=== PATIENT | male | born 1960 | race Two or more races ===

== ENCOUNTER 2021-02-22 22:56 | Inpatient (IN) | payer OTHER ==
[~2021-02-22] VITALS: Ht 154.9 cm; Wt 68.0 kg
--- NOTE | 2021-02-22 23:10 | NUR ---
PT [facility] FROM [facility] FOR G TUBE PLACEMENT PER PRIMARY DR. JAMES. A&OX 1. ON NASAL CANULLA 3L.
--- NOTE | 2021-02-22 23:20 | NUR ---
BLOOD COLLECTED AND SENT TO LAB.
[2021-02-22 23:36] LABS: HEMOGLOBIN 10.3 g/dL (13.5-17.5)
[2021-02-22 23:39] LABS: BASOPHILS # (AUTO) 0.1 K/uL (0.0-0.2); BASOPHILS % (AUTO) 0.4 % (0.0-2.0); EOSINOPHILS % (AUTO) 1.2 % (0.0-6.0); HEMATOCRIT 32 % (39-51); LYMPHOCYTES # (AUTO) 1.2 K/uL (0.8-4.8); LYMPHOCYTES % (AUTO) 7.2 % (20.0-44.0); MEAN CORPUSCULAR HGB CONC 32 g/dl (31.0-36.0); MEAN CORPUSCULAR VOLUME 86 fL (80-96); MONOCYTES # (AUTO) 0.8 K/uL (0.1-1.30); MONOCYTES % (AUTO) 4.5 % (2.0-12.0); NEUTROPHILS # (AUTO) 14.7 K/uL (1.8-8.9); NEUTROPHILS % (AUTO) 86.7 % (43.0-81.0); PLATELET COUNT (AUTO) 405 K/uL (150-450); RED BLOOD CELL COUNT(AUTO) 3.73 MIL/uL (4.5-6.0)
[2021-02-22 23:50] LABS: CALCIUM, SERUM 9.4 mg/dL (8.5-10.1); CREATININE 1.8 mg/dL (0.6-1.3); POTASSIUM 3.8 mmol/L (3.5-5.1)
[2021-02-23] MEDS ORDERED: IV NS 0.9% 1,000 ML BAG IV ONE
--- NOTE | 2021-02-23 | NUR ---
COVID SWAB AND URINE SAMPLE COLLECTED; SENT TO LAB
[2021-02-23 00:11] LABS: BILIRUBIN,URINE SMALL (NEGATIVE); COLOR,URINE YELLOW (YELLOW); LEUKOCYTE ESTERASE ,URINE Small (NEGATIVE); NITRITE, URINE Negative (NEGATIVE); PROTEIN,URINE >=300 mg/dl (NEGATIVE); UGLUCOSE Negative (NEGATIVE)
[2021-02-23 00:15] LABS: BACTERIA,URINE 1+ /HPF (None Seen); SQUAMOUS EPITHELIAL CELL,UR Few /HPF (None Seen)
[2021-02-23] MEDS ORDERED: CEFTRIAXONE 1GM BAG (ER ONLY) 1 GM/50 ML PIGGYBACK IV ONE (01:00)
[2021-02-23] MEDS ORDERED: CEFTRIAXONE 1GM BAG (ER ONLY) 50 ML IV ONE (01:13)
[2021-02-23] MEDS ORDERED: MAG HYDROX/AL HYDROX/SIMETH 30 ML UDC PO PRN (02:00)
[2021-02-23] MEDS ORDERED: ENOXAPARIN SODIUM 40 MG/0.4 ML DISP.SYRIN SQ SCH (02:00)
[2021-02-23] MEDS ORDERED: IV NS 0.9% 1,000 ML IV PRN (02:00)
[2021-02-23] MEDS ORDERED: ACETAMINOPHEN 325 MG TABLET PO PRN (02:00)
[2021-02-23] MEDS ORDERED: MORPHINE SULFATE INJ 2 MG/ML DISP.SYRIN IV PRN (02:00)
[2021-02-23] MEDS ORDERED: LABETALOL 20 MG/4 ML VIAL IV PRN (02:00)
[2021-02-23] MEDS ORDERED: ONDANSETRON HCL/PF 4 MG/2 ML VIAL IVP PRN (02:00)
[2021-02-23] MEDS ORDERED: ENOXAPARIN SODIUM 40 MG/0.4 ML DISP.SYRIN SQ ONE (06:08)
--- NOTE | 2021-02-23 06:35 | NUR ---
REPORT GIVEN TO BLACK KOLB
--- NOTE | 2021-02-23 06:51 | NUR ---
PATIENT TRANSFERRED, VSS, PT IN NO ACUTE DISTRESS.
--- NOTE | 2021-02-23 07:03 | NUR ---
RN ADMITTING NOTE PATIENT TRANSFERRED FROM ER TO 106-1. PATIENT STABLE UPON TRANSFER. PATIENT A/O X 1, HAS NOT VERBALIZED ANY WORDS AT THIS TIME. ORIENTED PATIENT TO AND UNIT. PATIENT HAS LAC 18 G AND RFA 20 G PATENT AND INTACT. VITAL SIGNS STABLE. SAFETY MEASURES IN PLACE: BED LOCKED AND IN LOWEST POSITION, CALL LIGHT WITHIN REACH, SIDE RAILS UP. WILL ENDORSE TO DAY SHIFT NURSE FOR NAHUM.
[2021-02-23 07:23] VITALS: BP 123/58
[2021-02-23] MEDS ORDERED: BISA10SU11 RC (07:50)
[2021-02-23] MEDS ORDERED: CLON0.1T PO (07:50)
[2021-02-23] MEDS ORDERED: LEVO50TA8 PO (07:50)
[2021-02-23] MEDS ORDERED: ALBU6.7H9 IH (07:50)
[2021-02-23] MEDS ORDERED: INSU100V7 SQ (07:50)
[2021-02-23] MEDS ORDERED: DOCU-141 PO (07:50)
[2021-02-23] MEDS ORDERED: ALLO100T PO (07:50)
[2021-02-23] MEDS ORDERED: CHOL200013 PO (07:50)
[2021-02-23] MEDS ORDERED: POLY17PO4 PO (07:50)
[2021-02-23] MEDS ORDERED: ASPI-1169 PO (07:50)
[2021-02-23] MEDS ORDERED: RISP2TAB5 PO (07:50)
[2021-02-23] MEDS ORDERED: INSU100V39 SQ (07:50)
[2021-02-23] MEDS ORDERED: AMLO5TAB4 PO (07:50)
[2021-02-23] MEDS ORDERED: CYCL5TAB PO (07:50)
[2021-02-23] MEDS ORDERED: SENN-175 PO (07:50)
[2021-02-23] MEDS ORDERED: ICOS1CAP PO (07:50)
[2021-02-23] MEDS ORDERED: ESCI20TA PO (07:50)
[2021-02-23] MEDS ORDERED: ACET325T53 PO (07:50)
[2021-02-23] MEDS ORDERED: ATOR80TA PO (07:50)
[2021-02-23 08:00] VITALS: BP 123/58
--- NOTE | 2021-02-23 08:00 | NUR ---
rn notes received patient a/ox1, but answering questions, refused pain, vss, skin assessment done picture taken. iv access on LAC intact flashing freely. patient incontinent using diaper. Patient has left upper and lower extremitas weakness, face left, and eye. assist turn and reposition q2hr. call light within to reach. will follow up.
[2021-02-23] MEDS: IV D5/0.45 NACL 1,000 ML IV SCH ×3 (10:57→22:08)
[2021-02-23 12:00] VITALS: BP 169/83
[2021-02-23] MEDS: hydrALAZINE HCL IV 20 MG VIAL IV PRN (12:41)
--- NOTE | 2021-02-23 12:42 | NUR ---
rnnotes bp169/83, p-85 administered Apresoline 10mg/ml iv push. Patient a/ox2 with confusion, has left side weakness. incontinent. call light within to reach. will follow up.
--- NOTE | 2021-02-23 13:00 | NUR ---
rn notes seen nuclear physics professor, new orders taken and carried out.
[2021-02-23 16:00] VITALS: BP 140/78
--- NOTE | 2021-02-23 18:30 | NUR ---
rn notes patient stable in the bed. no acute respiratory distress, total assist turn and reposition, infusing d51/2 ns at 100 ml on left ac area intact. call light within to reach. endorsed oncoming nurse follow plan of care.
--- NOTE | 2021-02-23 19:28 | NUR ---
CONTINUITY OF CARE Patient in bed, awake, speech slurred not clear. NPO except medication, IVF infusing. Turned and repositioned. Fall precaution maintained.
[2021-02-23 20:57] VITALS: BP 123/76
[2021-02-23] MEDS ORDERED: CEFTRIAXONE 1 G in IV D5W 50 ML IV SCH (21:00)
[2021-02-23] MEDS: CEFTRIAXONE 1 G in IV D5W 50 ML IV SCH (21:36)
[2021-02-23] MEDS: ENOXAPARIN SODIUM 40 MG/0.4 ML DISP.SYRIN SQ SCH (21:42)
--- NOTE | 2021-02-23 21:43 | NUR ---
ANTICOAGULANT H/H 10. PLT 405 No active bleeding. Lovenox injection given co-signed by BLACK Son.
[2021-02-24 01:06] VITALS: BP 163/77
[2021-02-24 04:35] VITALS: BP 173/83
[2021-02-24] MEDS: hydrALAZINE HCL IV 20 MG VIAL IV PRN (04:47)
--- NOTE | 2021-02-24 04:48 | NUR ---
ELEVATED BP BP 173/83 Patient sleeping arouses easily. Hydralazine given, will reassess.
[2021-02-24 06:20] LABS: BASOPHILS % (AUTO) 0.3 % (0.0-2.0); EOSINOPHILS % (AUTO) 2.2 % (0.0-6.0); HEMATOCRIT 31 % (39-51); HEMOGLOBIN 9.9 g/dL (13.5-17.5); LYMPHOCYTES # (AUTO) 1.6 K/uL (0.8-4.8); LYMPHOCYTES % (AUTO) 11.4 % (20.0-44.0); MEAN CORPUSCULAR HGB CONC 32 g/dl (31.0-36.0); MEAN CORPUSCULAR VOLUME 86 fL (80-96); MONOCYTES # (AUTO) 0.6 K/uL (0.1-1.30); MONOCYTES % (AUTO) 4.3 % (2.0-12.0); NEUTROPHILS # (AUTO) 11.2 K/uL (1.8-8.9); NEUTROPHILS % (AUTO) 81.8 % (43.0-81.0); PLATELET COUNT (AUTO) 366 K/uL (150-450); RED BLOOD CELL COUNT(AUTO) 3.58 MIL/uL (4.5-6.0); WHITE BLOOD COUNT (AUTO) 13.7 K/uL (4.3-11.0)
[2021-02-24 06:33] VITALS: BP 143/73
--- NOTE | 2021-02-24 06:39 | NUR ---
END OF SHIFT REPORT Patient is A/O x1 Confused, speech slurred. Ongoing IVF. NPO except medication. On IV abx Afebrile. BP improved. GI consult, pending PEG placement. Turned and repositioned. Fall precaution maintained. PCR test pending. Urine specimen to be collected and send to lab when available. Will endorse to oncoming RN.
[2021-02-24 07:43] LABS: ALBUMIN 2.5 g/dL (3.4-5.0); BILIRUBIN,TOTAL 0.3 mg/dL (0.2-1.0); CALCIUM, SERUM 8.8 mg/dL (8.5-10.1); CREATININE 1.3 mg/dL (0.6-1.3); MAGNESIUM 2.2 mg/dL (1.8-2.4); PHOSPHORUS 2.9 mg/dL (2.5-4.9); TOTAL PROTEIN, SERUM 7.4 g/dL (6.4-8.2)
--- NOTE | 2021-02-24 07:55 | NUR ---
TELE NURSE OPENING NOTE RECEIVE REPORT FROM TUNGSTEN TENDER NURSE. PATIENT IS STABLE. LEFT SIDE WEAKNESS DUE TO PREVIOUS STROKE. SLIGHT SLUR SPEECH. PATIENT IS NPO EXCEPT MEDS. PATIENT IS COMFORTABLE WITH NO SIGN OF PAIN OR DISTRESS. WAITING FOR SWALLOW EVALUATION. BED PUT ON THE LOWEST POSITION WITH HEAD OF THE BED ELEVATED. 3 SIDE RAIL IS UP. WILL CONTINUE TO MONITOR.
[2021-02-24 08:00] VITALS: BP 112/63
[2021-02-24] MEDS: POTASSIUM CL. PREMIX PERIPHER. 50 ML IV SCH ×6 (09:45→15:26)
--- NOTE | 2021-02-24 11:13 | NUR ---
seen and evaluated by renal md, reviewed labs and pt. npo status,renal will put order for ivf.will continue to follow up.
[2021-02-24] MEDS ORDERED: IV 1/2NS 1000 ML 1,000 ML IV ONE (12:00)
[2021-02-24] MEDS ORDERED: FLUCONAZOLE (100 MG) 100 MG TABLET PO SCH (15:00)
--- NOTE | 2021-02-24 15:09 | NUR ---
patient coughing with ice chips per dr. palafox keep patient npo and she already notified dr. martinez for peg.
--- NOTE | 2021-02-24 15:57 | NUR ---
dr. palafox aware pending swallow eval,still ok to obtain consent for peg.
--- NOTE | 2021-02-24 15:58 | NUR ---
able to obtain consent peg from sister.
[2021-02-24 16:00] VITALS: BP 146/76
[2021-02-24] MEDS: FLUCONAZOLE IN NS,PREMIX 200 MG in PREMIX 1 EA IV SCH (16:36)
--- NOTE | 2021-02-24 18:42 | NUR ---
NURSE CLOSING NOTE PATIENT ALERT ORIENTATED X1 WITH SLUR SPEECH. URINE SPECIMEN WAS OBTAIN AND LAB NOTIFIED. PATIENT MAINTAIN STABLE VITAL SIGNS THROUGH OUT SHIFT. PENDING SWALLOW EVALUATION. POTASSIUM CL. 10MEQ/50ML WAS GIVEN. CONSENT FOR PEG PROCEDURE WAS OBTAIN THROUGH SISTER. FLUCONAZOLE WAS GIVEN. D5 1/2 NS WAS DISCONTINUE. 0.45% NS WAS STARTED. ICE CHIPS WAS GIVEN BUT UNABLE TO TOLERATE. PATIENT WAS TURNED ACCORDING TO HOSPITAL POLICY. BED SHEET WAS CHANGED. BED PUT IN THE LOWEST POSITION WITH 3 RAILS UP. WILL CONTINUE TO MONITOR AND ENDORSE TO ON COMING NURSE.
--- NOTE | 2021-02-24 20:00 | NUR ---
TOOL CHECKER NOTES RECEIVED PATIENT IN BED, AWAKE, AND VERBALLY RESPONSIVE. PATIENT AOX1. BREATHING EVEN AND UNLABORED. NO SOB NOTED. PATIENT CURRENTLY ON ROOM AIR WITH O2 SATURATION OF 99%. SKIN IS WARM AND DRY TO TOUCH. NO COMPLAINTS OF DISCOMFORT. PATIENT NOTED WITH LEFT HAND AND RIGHT AC IV ACCESS, CURRENTLY RUNNING 0.45 NS @ 100 ML/HR. IV SITES PATENT, NO COMPLAINTS OF DISCOMFORT. PATIENT REMAINS NPO FOR POSSIBLE PEG PLACEMENT. CALL LIGHT WITHIN REACH.
[2021-02-24] MEDS: CEFTRIAXONE 1 G in IV D5W 50 ML IV SCH (20:38)
[2021-02-24] MEDS: ENOXAPARIN SODIUM 40 MG/0.4 ML DISP.SYRIN SQ SCH (21:00)
--- NOTE | 2021-02-24 21:02 | NUR ---
GEOSCIENCE TECHNICIAN NOTE VERIFIED LOVENOX 30 MG WITH ANNE MARIE BROWN TO HOLD OR GIVE DUE TO POSSIBLE PEG PLACEMENT. PER MD, HOLD LOVENOX FOR TONIGHT.
[2021-02-25] VITALS: BP 153/85
--- NOTE | 2021-02-25 02:07 | NUR ---
RN NOTES CONTACTED SNF FOR POLST COPY, SNF FACILITY UNABLE TO LOCATE PATIENT CHART AND STATES TO CALL AGAIN IN THE AM. PATIENT AT FULL CODE UNTIL INFORMATION IS OBTAINED FROM SNF. INFORMED.
[2021-02-25 02:55] LABS: CREATININE, URINE 57.1 MG/DL (30.0-125.0)
[2021-02-25 06:27] LABS: BASOPHILS # (AUTO) 0.1 K/uL (0.0-0.2); BASOPHILS % (AUTO) 0.5 % (0.0-2.0); EOSINOPHILS % (AUTO) 3.2 % (0.0-6.0); HEMATOCRIT 29 % (39-51); HEMOGLOBIN 9.4 g/dL (13.5-17.5); LYMPHOCYTES # (AUTO) 1.5 K/uL (0.8-4.8); LYMPHOCYTES % (AUTO) 13.9 % (20.0-44.0); MEAN CORPUSCULAR HGB CONC 33 g/dl (31.0-36.0); MEAN CORPUSCULAR VOLUME 85 fL (80-96); MONOCYTES # (AUTO) 0.5 K/uL (0.1-1.30); MONOCYTES % (AUTO) 4.3 % (2.0-12.0); NEUTROPHILS # (AUTO) 8.5 K/uL (1.8-8.9); NEUTROPHILS % (AUTO) 78.1 % (43.0-81.0); PLATELET COUNT (AUTO) 339 K/uL (150-450); RED BLOOD CELL COUNT(AUTO) 3.41 MIL/uL (4.5-6.0); WHITE BLOOD COUNT (AUTO) 10.9 K/uL (4.3-11.0)
[2021-02-25 06:50] LABS: CALCIUM, SERUM 8.4 mg/dL (8.5-10.1); CREATININE 1.1 mg/dL (0.6-1.3); PHOSPHORUS 3.6 mg/dL (2.5-4.9); POTASSIUM 3.3 mmol/L (3.5-5.1)
--- NOTE | 2021-02-25 07:17 | NUR ---
METAL OR WOOD BLOCKER NOTE NO SIGNIFICANT CHANGES IN PATIENT CONDITION. PATIENT SLEP WELL THROUGHOUT NIGHT. SIDE RAILS UP X2. SL INTACT AND PATENT. KEPT CLEAN AND DRY AT ALL TIMES. ON TELE MONITORING WITH SINUS RHYTHM, HR 70. ALL NEEDS ATTENDED. CALL LIGHT WITHIN REACH. ENDORSED TO DAY SHIFT NURSE FOR CONTINUITY OF CARE.
--- NOTE | 2021-02-25 07:49 | NUR ---
RN OPENING NOTE Pt is Asleep, alert to stimuli, no respiratory distress, no SOB. Remains NPO for possible PEG placement. Patient denies pain or distress. Safety precautions implemented, bed locked in lowest position, call light within reach.
[2021-02-25 08:00] VITALS: BP 166/93
[2021-02-25] MEDS: POTASSIUM CL. PREMIX PERIPHER. 50 ML IV SCH ×2 (09:32→10:55)
[2021-02-25] MEDS: FLUCONAZOLE IN NS,PREMIX 200 MG in PREMIX 1 EA IV SCH (15:52)
[2021-02-25 16:00] VITALS: BP 165/87
--- NOTE | 2021-02-25 19:15 | NUR ---
RN CLOSING NOTE Pt is A/O X 2, remains NPO for PEG placement, IV line clean with no s/sx of infiltration. K replaced as ordered for low potassium level. Safety precautions implemented, bed locked in lowest position, call light within reach.
--- NOTE | 2021-02-25 19:17 | NUR ---
RN NOTE PT RECEIVED IN BED. PT ON ROOM AIR SHOWING NO S/S OF RESP DISTRESS/SOB. PT IS A/OX1-2. PT ON TELE MONITOR SHOWING NSR. PT CURRENTLY NPO, PEG PLACEMENT IN AM. IV LINE ON LEFT WRIST #20 AND RIGHT AC #18 NOTED. LINES FLUSHED, PATENT, AND INTACT WITH NO INFILTRATION. ALL SAFETY MEASURES IMPLEMENTED. CALL LIGHT WITHIN REACH. BED ALARM ON. BED LOCKED AND IN LOWEST POSITION. WILL CONTINUE TO MONITOR AND ASSESS FOR ANY CHANGES.
--- NOTE | 2021-02-25 19:22 | NUR ---
RN NOTE SPOKE WITH DR. NICE ABOUT PTS SCHEDULED LOVENOX. PER MD ORDER, WILL HOLD LOVENOX DUE TO PEG PLACEMENT IN AM.
[2021-02-25 20:00] VITALS: BP 116/84
[2021-02-25] MEDS: ENOXAPARIN SODIUM 40 MG/0.4 ML DISP.SYRIN SQ SCH (20:39)
[2021-02-25] MEDS ORDERED: CLONIDINE HCL 0.1 MG TABLET PO PRN (23:30)
[2021-02-26] VITALS: BP 156/80
[2021-02-26] MEDS ORDERED: Potassium Chloride 30 MEQ in IV D5W 1,000 ML IV SCH (00:30)
[2021-02-26] MEDS ORDERED: ALBUTEROL FS 2.5 MG/3 ML VIAL.NEB NEB PRN (01:00)
[2021-02-26] MEDS ORDERED: CYCLOBENZAPRINE 10 MG TABLET PO PRN (01:00)
--- NOTE | 2021-02-26 02:44 | NUR ---
RN NOTE NURSING TRANSPORTATION DESIGN ENGINEER RAINA AND DIRECTOR [facility] ROD SAID POTASSIUM CHLORIDE 30 MEQ IV NOT AVAILABLE. SPOKE WITH DR. NICE ABOUT DR. RICE ORDER OF 30 MEQ POTASSIUM CHLORIDE IV NOT BEING AVAILABLE AND ONLY BEING AVAILABLE IN [address] NICE CHANGED ORDER TO [address] RICE DID NOT ANSWER CALL. WILL CARRY OUT ORDER.
[2021-02-26] MEDS ORDERED: IV PREMIX D5W + KCL 1,000 ML IV ONE (02:53)
[2021-02-26] MEDS: Potassium Chloride 20 MEQ in IV D5W 1,000 ML IV SCH ×2 (03:01→23:53)
[2021-02-26 04:00] VITALS: BP 153/87
[2021-02-26 06:32] LABS: BASOPHILS # (AUTO) 0.1 K/uL (0.0-0.2); BASOPHILS % (AUTO) 0.6 % (0.0-2.0); EOSINOPHILS % (AUTO) 4.2 % (0.0-6.0); HEMATOCRIT 32 % (39-51); HEMOGLOBIN 10.6 g/dL (13.5-17.5); LYMPHOCYTES # (AUTO) 1.4 K/uL (0.8-4.8); LYMPHOCYTES % (AUTO) 15.4 % (20.0-44.0); MEAN CORPUSCULAR HGB CONC 33 g/dl (31.0-36.0); MEAN CORPUSCULAR VOLUME 86 fL (80-96); MONOCYTES # (AUTO) 0.5 K/uL (0.1-1.30); MONOCYTES % (AUTO) 5.1 % (2.0-12.0); NEUTROPHILS % (AUTO) 74.7 % (43.0-81.0); PLATELET COUNT (AUTO) 346 K/uL (150-450); RED BLOOD CELL COUNT(AUTO) 3.77 MIL/uL (4.5-6.0); WHITE BLOOD COUNT (AUTO) 9.3 K/uL (4.3-11.0)
[2021-02-26 07:05] LABS: CALCIUM, SERUM 9.1 mg/dL (8.5-10.1); MAGNESIUM 2.2 mg/dL (1.8-2.4); POTASSIUM 3.4 mmol/L (3.5-5.1)
--- NOTE | 2021-02-26 07:05 | NUR ---
RN NOTE NO CHANGES IN PT CONDITION DURING SHIFT. PT ON ROOM AIR SHOWING NO S/S OF RESP DISTRESS/SOB. PT IS A/OX1-2. PT ON TELE MONITOR SHOWING NSR. IV LINE ON LEFT WRIST #20 AND RIGHT AC #18 NOTED. LINES FLUSHED, PATENT, AND INTACT WITH NO INFILTRATION. ALL DUE MEDS GIVEN ORDERED. PT KEPT CLEAN AND COMFORTABLE. ALL SAFETY MEASURES IMPLEMENTED. CALL LIGHT WITHIN REACH. BED ALARM ON. BED LOCKED AND IN LOWEST POSITION. WILL ENDORSE TO MORNING SHIFT RN FOR NAHUM.
--- NOTE | 2021-02-26 07:16 | NUR ---
RN OPENING NOTE Pt is asleep, arousable to stimuli, no respiratory distress, no SOB. NPO status for possible GT placement. Safety precautions implemented, bed locked in lowest position, call light within reach.
[2021-02-26] MEDS: AMLODIPINE BESYLATE 5 MG TABLET PO SCH (08:21)
[2021-02-26] MEDS: LEVOTHYROXINE SODIUM 50 MCG TABLET PO SCH (08:23)
[2021-02-26] MEDS: ALLOPURINOL 100 MG TABLET PO SCH (08:23)
--- NOTE | 2021-02-26 08:33 | NUR ---
RN NOTE Per MD OK to give meds crushed with apple sauce x 1.
[2021-02-26] MEDS ORDERED: ASPIRIN 81 MG TAB.CHEW PO SCH (09:00)
[2021-02-26] MEDS ORDERED: ESCITALOPRAM OXALATE (10 MG) 10 MG TABLET PO SCH (09:00)
[2021-02-26 10:46] VITALS: BP 162/92
[2021-02-26 12:00] VITALS: BP 102/55
[2021-02-26] MEDS: POTASSIUM CL. PREMIX PERIPHER. 50 ML IV SCH ×2 (13:34→14:52)
[2021-02-26 16:23] VITALS: BP 107/77
[2021-02-26] MEDS: FLUCONAZOLE IN NS,PREMIX 200 MG in PREMIX 1 EA IV SCH (16:33)
--- NOTE | 2021-02-26 18:50 | NUR ---
RN CLOSING NOTE Pt is A/O x 2 with periods of disorientation, no respiratory distress, no SOB. Sinus rhythm. Maintained NPO for possible PEG placement today. IV hydration running K 20MEQ D5 50cc to complete 20 hours. Right hand IV with no s/sx of infiltration. Safety precautions implemented, bed locked in lowest position, call light within reach.
--- NOTE | 2021-02-26 19:29 | NUR ---
RN NOTE SPOKE AND INFORMED DR. MARIO CHAMPION ABOUT PT GOING FOR PEG PLACEMENT, ORDERED TO HOLD LOVENOX FOR THE NIGHT. ORDER NOTED AND CARRIED OUT.
--- NOTE | 2021-02-26 19:35 | NUR ---
RN NOTE PT RECEIVED IN BED. PT ON ROOM AIR SHOWING NO S/S OF RESP DISTRESS/SOB. PT IS A/OX1. PT ON TELE MONITOR SHOWING NSR. PT CURRENTLY NPO, OR IS ABOUT TO TAKE PATIENT FOR PEG PLACEMENT. IV ACCESS NOTED ON RIGHT HAND #24. LINE FLUSHED, PATENT, AND INTACT WITH NO INFILTRATION. ALL SAFETY MEASURES IMPLEMENTED. CALL LIGHT WITHIN REACH. BED ALARM ON. BED LOCKED AND IN LOWEST POSITION. WILL CONTINUE TO MONITOR AND ASSESS FOR ANY CHANGES.
[2021-02-26] MEDS ORDERED: ROCURONIUM BROMIDE 50 MG/5 ML ONE (19:47)
[2021-02-26 20:00] VITALS: BP 142/64
[2021-02-26] MEDS: ENOXAPARIN SODIUM 40 MG/0.4 ML DISP.SYRIN SQ SCH (21:00)
--- NOTE | 2021-02-26 21:05 | NUR ---
RN NOTE REPORT RECEIVED BY AMY COLEMAN FOR PTS UPDATE ON PEG PLACEMENT. PER DR. MARCI JONES TO START MEDS VIA PEG TUBE AND START TUBE FEEDING.
--- NOTE | 2021-02-26 21:11 | NUR ---
RN NOTE PER DR. AKIRA DR. ORDERED TO START JEVITY 1.2 AT 30 ML/HR AND DIETARY CONSULT. ORDER NOTED AND CARRIED OUT.
[2021-02-26] MEDS ORDERED: ANESTHESIA TRAY IN PYXIS 1 EA TRAY MC ONE (21:42)
[2021-02-26] MEDS ORDERED: ATORVASTATIN 40 MG TABLET PO SCH (22:00)
[2021-02-26] MEDS ORDERED: JEVITY 1.2 CAL 1,000 ML BOTTLE GT PRN (22:00)
[2021-02-26] MEDS ORDERED: risperiDONE 1 MG TABLET PO SCH (22:00)
--- NOTE | 2021-02-26 22:19 | NUR ---
RN NOTE RISPERDAL AND LIPITOR ADMINISTERED VIA PEG TUBE PER MD ORDER.
--- NOTE | 2021-02-26 22:31 | NUR ---
RN NOTE SPOKE WITH DR. MARIO CHAMPION ABOUT PREVIOUS CONVERSATION OF JEVITY. ACCORDING TO DR. ALEX AND PT'S SISTER RASHAD, PT IS DIABETIC. JEVITY HAD NOT BEEN STARTED YET, PER DR. CHAMPION, OKAY TO D/C JEVITY AND START GLUCERNA. WILL CARRY OUT ORDER.
[2021-02-26] MEDS ORDERED: GLUCERNA 1.2 1,000 ML BOTTLE NG PRN (23:00)
[2021-02-27] VITALS: BP 120/74
[2021-02-27 04:00] VITALS: BP 136/76
[2021-02-27 06:41] LABS: BASOPHILS % (AUTO) 0.4 % (0.0-2.0); EOSINOPHILS % (AUTO) 3.3 % (0.0-6.0); HEMATOCRIT 29 % (39-51); HEMOGLOBIN 9.5 g/dL (13.5-17.5); LYMPHOCYTES # (AUTO) 1.5 K/uL (0.8-4.8); LYMPHOCYTES % (AUTO) 12.7 % (20.0-44.0); MEAN CORPUSCULAR HGB CONC 33 g/dl (31.0-36.0); MEAN CORPUSCULAR VOLUME 86 fL (80-96); MONOCYTES # (AUTO) 0.6 K/uL (0.1-1.30); MONOCYTES % (AUTO) 4.7 % (2.0-12.0); NEUTROPHILS # (AUTO) 9.2 K/uL (1.8-8.9); NEUTROPHILS % (AUTO) 78.9 % (43.0-81.0); PLATELET COUNT (AUTO) 308 K/uL (150-450); WHITE BLOOD COUNT (AUTO) 11.6 K/uL (4.3-11.0)
--- NOTE | 2021-02-27 06:42 | NUR ---
RN NOTE NO CHANGES IN PT CONDITION DURING SHIFT. PT ON ROOM AIR SHOWING NO S/S OF RESP DISTRESS/SOB. PT IS A/OX1. PT ON TELE MONITOR SHOWING NSR. PT HAD PEG TUBE PLACEMENT DURING EVENING AND TUBE FEEDING WAS INITIATED. PT IS ON GLUCERNA 1.2 AT 30 ML/HR. PT TOLERATING WELL WITH NO RESIDUAL NOTED. IV ACCESS NOTED ON RIGHT HAND #24. LINE FLUSHED, PATENT, AND INTACT WITH NO INFILTRATION. ALL DUE MEDS GIVEN ORDERED. PT KEPT CLEAN AND COMFORTABLE. ALL SAFETY MEASURES IMPLEMENTED. CALL LIGHT WITHIN REACH. BED ALARM ON. BED LOCKED AND IN LOWEST POSITION. WILL ENDORSE TO MORNING SHIFT RN FOR NAHUM.
[2021-02-27 06:54] LABS: CALCIUM, SERUM 8.5 mg/dL (8.5-10.1); CREATININE 1.1 mg/dL (0.6-1.3); MAGNESIUM 2.1 mg/dL (1.8-2.4); POTASSIUM 3.8 mmol/L (3.5-5.1)
[2021-02-27] MEDS: LEVOTHYROXINE SODIUM 50 MCG TABLET PO SCH (07:31)
--- NOTE | 2021-02-27 07:45 | NUR ---
RN NOTE Received pt in bed sleeping on RA with no signs of distress or difficulty breathing. Pt had a peg tube placement 02/26 with no signs of infection, residual of 20ml. Pt has a R hand 24gauge flushed, patent, with dressing in tact and no signs of redness or swelling. Safety measures in place with bed in lowest locked position, side rails up x3, call light within reach and bed alarm on.
[2021-02-27 08:00] VITALS: BP 146/88
[2021-02-27] MEDS ORDERED: CLONIDINE HCL 0.1 MG TABLET GT PRN (08:50)
[2021-02-27] MEDS ORDERED: ASPIRIN 81 MG TAB.CHEW GT SCH (09:00)
[2021-02-27] MEDS ORDERED: ESCITALOPRAM OXALATE (10 MG) 10 MG TABLET GT SCH (09:00)
[2021-02-27] MEDS: ALLOPURINOL 100 MG TABLET PO SCH (09:14)
[2021-02-27] MEDS: AMLODIPINE BESYLATE 5 MG TABLET PO SCH (09:15)
--- NOTE | 2021-02-27 11:32 | NUR ---
RN NOTE Stopped infusion of KCL meq in IV D52 per MD order. Pt tolerating Glucerna 1.2 @30ml/hr well.
[2021-02-27 12:01] VITALS: BP 140/79
[2021-02-27] MEDS ORDERED: ICOS1CAP GT (12:08)
[2021-02-27] MEDS ORDERED: CHOL200013 GT (12:08)
[2021-02-27] MEDS ORDERED: ATOR80TA GT (12:08)
[2021-02-27] MEDS ORDERED: ASPI-1169 GT (12:08)
[2021-02-27] MEDS ORDERED: NUT.237L45 NG (12:08)
[2021-02-27] MEDS ORDERED: ESCI20TA GT (12:08)
[2021-02-27] MEDS ORDERED: LEVO50TA8 GT (12:08)
[2021-02-27] MEDS ORDERED: RISP2TAB5 GT (12:08)
[2021-02-27] MEDS ORDERED: AMLO5TAB4 GT (12:08)
[2021-02-27] MEDS ORDERED: ALLO100T GT (12:08)
--- NOTE | 2021-02-27 15:01 | NUR ---
RN NOTE Pt discharge to [facility], report given to RN supervisor nurse Renee. Pt stable BP 114/70, HR 84, with O2 saturation of 99%. Telemetry box removed and IV R hand 24g removed with dressing placed and no s/sx of infection.
[2021-02-27] MEDS ORDERED: ATORVASTATIN 40 MG TABLET GT SCH (22:00)
== END 2021-02-27 14:57 | DRG 640 ==
LOC: ER 23:00 → TRANSITION 02-23 03:26 → MEDSG1 02-23 05:02 → TELE1 02-24 09:01
PROVIDERS: ADMIT Student in an Organized Health Care Education/Training Program; ATTEND Nurse Practitioner Acute Care
PROC: 0DH63UZ Insertion of Feeding Device into Stomach, Percutaneous Approach (ICD-10-PCS; principal; 2021-02-26)
DX: R62.7 Adult failure to thrive (principal); N17.0 Acute kidney failure with tubular necrosis; G93.41 Metabolic encephalopathy; E87.0 Hyperosmolality and hypernatremia; B37.49 Other urogenital candidiasis; I69.354 Hemiplegia and hemiparesis following cerebral infarction affecting left non-dominant side; R13.10 Dysphagia, unspecified; E11.9 Type 2 diabetes mellitus without complications; I10 Essential (primary) hypertension; E86.0 Dehydration; F32.9 Major depressive disorder, single episode, unspecified; D63.8 Anemia in other chronic diseases classified elsewhere; E87.6 Hypokalemia; K29.70 Gastritis, unspecified, without bleeding; Z86.59 Personal history of other mental and behavioral disorders; Z20.822 Contact with and (suspected) exposure to COVID-19
CPT/HCPCS: 36415; 43246; 71045-TC; 80048-TC; 80053-TC; 81001; 82570-TC; 83605-TC; 83735-TC; 84100-TC; 84155-TC; 84300-TC; 85025-TC; 85730-TC; 87081-TC; 87086-TC; 92526; 92611-TC; A4216; C9803; G0378; J0360; J0690; J0696; J1450; J1650; J2270; J2405; J2704; J3480; J3490; J7030; J7040; J7060; J7070; U0003

== ENCOUNTER 2021-12-03 09:48 | Inpatient (IN) | payer OTHER ==
[~2021-12-03] VITALS: Ht 170.2 cm; Wt 70.8 kg
[~2021-12-03 09:48] MED LIST: ALBU6.7H9 IH; ALLO100T GT; AMLO5TAB4 GT; ASPI-1169 GT; ATOR80TA GT; BISA10SU11 RC; CHOL200013 GT; ESCI20TA GT; ICOS1CAP GT; INSU100V7 SQ; LEVO50TA8 GT; NUT.237L45 NG; RISP2TAB5 GT
[2021-12-03] MEDS ORDERED: ONDANSETRON HCL/PF 4 MG/2 ML VIAL ONE (10:06)
[2021-12-03] MEDS ORDERED: PANTOPRAZOLE 40 MG VIAL ONE (10:15)
--- NOTE | 2021-12-03 10:15 | NUR ---
SMITH FROM [facility] FOR HAVING COFFEE GROUND EMESIS TODAY IN AM. PT NON-VERBAL, OPENS EYES SPONTANEOUSLY, RESPONDS TO NAME. TO ER BED 9. ATTACHED TO MONITOR, VS TAKEN.
[2021-12-03] MEDS ORDERED: NUT.237L30 GT (10:17)
[2021-12-03] MEDS ORDERED: ALBU8.5H8 IH (10:17)
[2021-12-03] MEDS ORDERED: ASPI-1169 GT (10:17)
[2021-12-03] MEDS ORDERED: DOCU50LI GT (10:17)
[2021-12-03] MEDS ORDERED: ACET-2605 GT ×2 (10:17)
[2021-12-03] MEDS ORDERED: FERR300L GT (10:17)
[2021-12-03] MEDS ORDERED: CHOL100043 GT (10:17)
[2021-12-03] MEDS ORDERED: ATOR40TA GT (10:17)
[2021-12-03] MEDS ORDERED: ACET-868 GT (10:17)
[2021-12-03] MEDS ORDERED: AMLO-212 GT (10:17)
[2021-12-03] MEDS ORDERED: CLON0.1T GT (10:17)
[2021-12-03] MEDS ORDERED: LEVO25TA7 GT (10:17)
[2021-12-03] MEDS ORDERED: ESCI10TA GT (10:17)
[2021-12-03] MEDS ORDERED: ALLO100T GT (10:17)
[2021-12-03] MEDS ORDERED: CYCL5TAB GT (10:17)
[2021-12-03] MEDS ORDERED: CLOP75TA15 GT (10:17)
--- NOTE | 2021-12-03 10:22 | NUR ---
IV LINE ESTABLISHED ON LEFT HAND #18.
--- NOTE | 2021-12-03 10:24 | NUR ---
NO RESIDUAL NOTED FROM G-TUBE. DR. GILLIS MADE AWARE.
[2021-12-03 10:28] LABS: BASOPHILS # (AUTO) 0.1 K/uL (0.0-0.2); BASOPHILS % (AUTO) 0.4 % (0.0-2.0); HEMATOCRIT 42 % (39-51); HEMOGLOBIN 13.7 g/dL (13.5-17.5); LYMPHOCYTES # (AUTO) 1.3 K/uL (0.8-4.8); LYMPHOCYTES % (AUTO) 10.9 % (20.0-44.0); MEAN CORPUSCULAR HGB CONC 33 g/dl (31.0-36.0); MEAN CORPUSCULAR VOLUME 89 fL (80-96); MONOCYTES % (AUTO) 8.2 % (2.0-12.0); NEUTROPHILS # (AUTO) 9.6 K/uL (1.8-8.9); NEUTROPHILS % (AUTO) 79.5 % (43.0-81.0); PLATELET COUNT (AUTO) 240 K/uL (150-450); WHITE BLOOD COUNT (AUTO) 12.1 K/uL (4.3-11.0)
[2021-12-03] MEDS ORDERED: ONDANSETRON HCL/PF 4 MG/2 ML VIAL IVP ONE (10:30)
[2021-12-03] MEDS ORDERED: PANTOPRAZOLE 40 MG VIAL IV ONE (10:30)
[2021-12-03 10:40] LABS: ALBUMIN 2.4 g/dL (3.4-5.0); BILIRUBIN,DIRECT 0.1 mg/dL (0.0-0.2); BILIRUBIN,TOTAL 0.4 mg/dL (0.2-1.0); CALCIUM, SERUM 8.8 mg/dL (8.5-10.1); CREATININE 1.1 mg/dL (0.6-1.3); POTASSIUM 3.7 mmol/L (3.5-5.1); TOTAL PROTEIN, SERUM 6.9 g/dL (6.4-8.2)
[2021-12-03] MEDS ORDERED: IOHEXOL-300 100 ML VIAL IV ONE (10:59)
[2021-12-03] MEDS ORDERED: IV NS 0.9% 250 ML IV ONE (10:59)
[2021-12-03] MEDS ORDERED: CT SWABBABLE VALVE TRANS SET 1 EA INFUS.SET MC ONE (10:59)
--- NOTE | 2021-12-03 11:10 | NUR ---
PT TAKEN TO RADIOLOGY.
--- NOTE | 2021-12-03 11:20 | NUR ---
PT RETURNED FROM RADIOLOGY
--- NOTE | 2021-12-03 12:47 | NUR ---
COVID TEST COLLECTED AND SENT
[2021-12-03] MEDS ORDERED: CLONIDINE HCL 0.1 MG TABLET GT PRN (19:00)
[2021-12-03] MEDS ORDERED: ACETAMINOPHEN 325 MG TABLET PO PRN (19:00)
[2021-12-03] MEDS ORDERED: GLUCERNA 1.2 1,000 ML BOTTLE NG SCH (19:00)
[2021-12-03] MEDS ORDERED: Z GUARD REMEDY 4 OZ OINT TP PRN (19:00)
[2021-12-03] MEDS ORDERED: ONDANSETRON HCL/PF 4 MG/2 ML VIAL IVP PRN (19:00)
[2021-12-03] MEDS ORDERED: ALBUTEROL FS 2.5 MG/0.5 ML VIAL.NEB IH PRN (19:00)
[2021-12-03] MEDS ORDERED: MAG HYDROX/AL HYDROX/SIMETH 30 ML UDC PO PRN (19:00)
[2021-12-03] MEDS ORDERED: ZOLPIDEM TARTRATE 5 MG TABLET PO PRN (19:00)
[2021-12-03] MEDS ORDERED: MAGNESIUM HYDROXIDE 30 ML UDC PO PRN (19:00)
[2021-12-03] MEDS ORDERED: CYCLOBENZAPRINE 10 MG TABLET GT PRN (19:30)
--- NOTE | 2021-12-03 20:06 | NUR ---
ROOM 304-2
--- NOTE | 2021-12-03 20:12 | NUR ---
BENJAMIN WILL CALL ME FOR REPORT
--- NOTE | 2021-12-03 20:44 | NUR ---
REPORT GIVEN TO BLACK EASTON
--- NOTE | 2021-12-03 20:55 | NUR ---
PATIENT BEING TRANSFERRED TO [facility] VIA ACLS PROTOCOL
[2021-12-03 21:00] VITALS: BP 119/85
--- NOTE | 2021-12-03 21:00 | NUR ---
PATIENT ARRIVED FROM ER, AWAKE, NON VERBAL. NO S/S OF DISTRESS NOTED. NOT IN PAIN. BED ALARM ON. BED IN LOWEST AND LOCKED POSITION. HOB ELEVATED. WITH GT INTACT AND CLAMPED. WITH LEFT SIDED WEAKNESS. HEELS OFFLOADED. TURNED AND REPOSITIONED.
[2021-12-03] MEDS: INSULIN GLARGINE, 100 UNIT/ML CARTRIDGE SQ SCH (22:00)
--- NOTE | 2021-12-03 22:31 | NUR ---
TF GLUCERNA ORDER CLARIFIED WITH SAW FEEDER ANN MARIE IF IT IS TO BE START TONIGHT. ORDERED DIETARY CONSULT FOR TF RECOMMENDATIONS.
[2021-12-03] MEDS: ATORVASTATIN 40 MG TABLET GT SCH (23:37)
[2021-12-03] MEDS ORDERED: INSULIN GLARGINE, 100 UNIT/ML CARTRIDGE SQ ONE (23:40)
--- NOTE | 2021-12-03 23:44 | NUR ---
GT RESIDUAL CHECKED= NONE. GT SITE DRESSING CHANGED, NO SKIN IRRITATION NOTED.
[2021-12-04] VITALS: BP_SYST 142; BP_DIAS 92; BP_DIAS 97
--- NOTE | 2021-12-04 | NUR ---
LANTUS NOT GIVEN, PATIENT IS NOT ON TUBE FEEDING AT THIS TIME. DIETARY CONSULT IS ORDERED FOR FEEDING RECOMMENDATIONS PER CONTROL EQUIPMENT ELECTRICIAN ANN MARIE.
[2021-12-04 03:43] VITALS: BP 147/93
[2021-12-04 04:00] VITALS: BP 147/93
[2021-12-04 07:44] LABS: BASOPHILS % (AUTO) 0.2 % (0.0-2.0); EOSINOPHILS % (AUTO) 0.6 % (0.0-6.0); HEMATOCRIT 39 % (39-51); HEMOGLOBIN 12.6 g/dL (13.5-17.5); LYMPHOCYTES # (AUTO) 1.6 K/uL (0.8-4.8); LYMPHOCYTES % (AUTO) 9.2 % (20.0-44.0); MEAN CORPUSCULAR HGB CONC 32 g/dl (31.0-36.0); MEAN CORPUSCULAR VOLUME 90 fL (80-96); MONOCYTES % (AUTO) 5.7 % (2.0-12.0); NEUTROPHILS # (AUTO) 14.7 K/uL (1.8-8.9); NEUTROPHILS % (AUTO) 84.3 % (43.0-81.0); PLATELET COUNT (AUTO) 205 K/uL (150-450); RED BLOOD CELL COUNT(AUTO) 4.39 MIL/uL (4.5-6.0); WHITE BLOOD COUNT (AUTO) 17.5 K/uL (4.3-11.0)
--- NOTE | 2021-12-04 07:45 | NUR ---
RN NOTE RECEIVED PATIENT IN BED RESTING CONFUSED NON VERBAL ON ROOM AIR NPO,IV SITE IS ON LEFT HAND INTACT PATENT,INCONTINENT BOWEL/BLADDER SAFETY MEASURE IMPLEMENT BED IN LOW POSITION AND LOCKED,HEAD OF THE BED ELEVATED,BED ALARM IS ON CONTINUE TO MONITOR.
[2021-12-04 08:00] VITALS: BP 127/71
[2021-12-04 08:09] LABS: CALCIUM, SERUM 8.9 mg/dL (8.5-10.1); CREATININE 1.1 mg/dL (0.6-1.3); MAGNESIUM 2.1 mg/dL (1.8-2.4); PHOSPHORUS 3.3 mg/dL (2.5-4.9); POTASSIUM 3.8 mmol/L (3.5-5.1)
[2021-12-04] MEDS: CHOLECALCIFEROL 1,000 UNIT TABLET (VIT D3) GT SCH (08:14)
[2021-12-04] MEDS: AMLODIPINE BESYLATE 5 MG TABLET GT SCH (08:15)
[2021-12-04] MEDS: DOCUSATE SODIUM LIQ 100 MG/10 ML UDC GT SCH (08:15)
[2021-12-04] MEDS: ASPIRIN 81 MG TAB.CHEW GT SCH (08:15)
[2021-12-04] MEDS: ALLOPURINOL 100 MG TABLET GT SCH (08:15)
[2021-12-04] MEDS: LEVOTHYROXINE SODIUM 25 MCG TABLET GT SCH (08:15)
[2021-12-04] MEDS: FERROUS SULFATE UDC 300 MG/5 ML UDC GT SCH ×2 (08:15→17:19)
[2021-12-04] MEDS: CLOPIDOGREL BISULFATE 75 MG TABLET GT SCH (08:16)
[2021-12-04] MEDS: ESCITALOPRAM OXALATE (10 MG) 10 MG TABLET GT SCH (08:16)
[2021-12-04] MEDS ORDERED: GLUCERNA 1.2 1,000 ML BOTTLE NG SCH (08:39)
[2021-12-04] MEDS: GLUCERNA 1.2 1,000 ML BOTTLE PEG PRN (10:42)
--- NOTE | 2021-12-04 11:30 | NUR ---
RN NOTE LAB RESULTS SHOWS WBC 17.5 AND [address] HANDY,HE ORDERED G-TUBE FEEDING GLUCERNA 1.2 65CC/HR FOR 20 HOURS,AND FREE WATER FLUSH 200CC EVERY 6 HOURS NOTED AND CARRIED OUT.
--- NOTE | 2021-12-04 11:35 | NUR ---
RN NOTE STARTS G-TUBE FEEDING CHECKED PLACEMENT IN PLACE NO RESIDUAL NOTED,GLUCERNA 1.2 30CC/HR GOAL IS 65CC/HR FREE WATER FLUSH 200CC EVERY 6 HOURS,CONTINUE TO MONITOR.
--- NOTE | 2021-12-04 18:42 | NUR ---
RN NOTE PATIENT REMAINS ON CONFUSE NON VERBAL ON ROOM AIR NO SOB NOT ACUTE DISTRESS NOTED,ON G-TUBE FEEDING GLUCERNA 1.2 30CC/HR CHECKED PLACEMENT IN PLACE NO RESIDUAL NOTED ALL DUE MEDS GIVEN MD ORDERED KEPT CLEAN AND DRY ALL THE TIME,KEPT COMFORTABLE HEAD OF THE BED ELEVATED ALL THE TIME,ENDORSE NEXT COMING SHIFT FOR CONTINUATION OF CARE
[2021-12-04 20:00] VITALS: BP 135/83
--- NOTE | 2021-12-04 20:22 | NUR ---
RN OPENING NOTES RECEIVED PT IN BED, ASLEEP, AWAKENS TO VERBAL STIMULI. AOx1, NONVERBAL. ON RA AND TOLERATING WELL. NO SOB NOTED. NO S/SX OF RESPIRATORY DISTRESS NOTED. IV ACCESS IN L HAND. IV IS INTACT, PATENT, AND FLUSHING WELL. TELE MONITOR DETECTS SINUS RHYTHM WITH RATE OF 87. SAFETY PRECAUTIONS IN PLACE: BED IN LOWEST, LOCKED POSITION, SIDERAILS UPx2, AND BRAKES ON. TABLE AND CALL LIGHT WITHIN REACH. WILL CONTINUE TO MONITOR.
[2021-12-04] MEDS: ATORVASTATIN 40 MG TABLET GT SCH (22:38)
[2021-12-04] MEDS: INSULIN GLARGINE, 100 UNIT/ML CARTRIDGE SQ SCH (22:42)
[2021-12-05 05:00] VITALS: BP 154/79
--- NOTE | 2021-12-05 06:45 | NUR ---
RN CLOSING NOTES PT IN BED, ASLEEP, AWAKENS TO VERBAL STIMULI. AOx1, NONVERBAL. ON RA AND TOLERATING WELL. NO SOB NOTED. NO S/SX OF RESPIRATORY DISTRESS NOTED. IV ACCESS IN L HAND #18G. IV IS INTACT, PATENT, AND FLUSHING WELL. TELE MONITOR DETECTS SINUS RHYTHM WITH BBB AND RATE OF 84. ALL ORDERS CARRIED OUT. ALL NEEDS MET. PT KEPT CLEAN AND DRY. SAFETY PRECAUTIONS IN PLACE: BED IN LOWEST, LOCKED POSITION, SIDERAILS UPx2, AND BRAKES ON. TABLE AND CALL LIGHT WITHIN REACH. WILL ENDORSE TO ONCOMING SHIFT FOR NAHUM.
[2021-12-05 06:52] LABS: BASOPHILS % (AUTO) 0.4 % (0.0-2.0); EOSINOPHILS % (AUTO) 4.7 % (0.0-6.0); HEMATOCRIT 38 % (39-51); HEMOGLOBIN 12.5 g/dL (13.5-17.5); LYMPHOCYTES # (AUTO) 1.4 K/uL (0.8-4.8); LYMPHOCYTES % (AUTO) 11.6 % (20.0-44.0); MEAN CORPUSCULAR HGB CONC 33 g/dl (31.0-36.0); MEAN CORPUSCULAR VOLUME 89 fL (80-96); MONOCYTES # (AUTO) 0.6 K/uL (0.1-1.30); MONOCYTES % (AUTO) 5.6 % (2.0-12.0); NEUTROPHILS % (AUTO) 77.7 % (43.0-81.0); PLATELET COUNT (AUTO) 199 K/uL (150-450); RED BLOOD CELL COUNT(AUTO) 4.29 MIL/uL (4.5-6.0); WHITE BLOOD COUNT (AUTO) 11.6 K/uL (4.3-11.0)
[2021-12-05 06:57] LABS: CREATININE 0.9 mg/dL (0.6-1.3); POTASSIUM 3.6 mmol/L (3.5-5.1)
[2021-12-05] MEDS: FERROUS SULFATE UDC 300 MG/5 ML UDC GT SCH ×2 (08:21→16:22)
[2021-12-05] MEDS: CLOPIDOGREL BISULFATE 75 MG TABLET GT SCH (08:21)
[2021-12-05] MEDS: CHOLECALCIFEROL 1,000 UNIT TABLET (VIT D3) GT SCH (08:21)
[2021-12-05] MEDS: ASPIRIN 81 MG TAB.CHEW GT SCH (08:21)
[2021-12-05] MEDS: LEVOTHYROXINE SODIUM 25 MCG TABLET GT SCH (08:21)
[2021-12-05] MEDS: DOCUSATE SODIUM LIQ 100 MG/10 ML UDC GT SCH (08:21)
[2021-12-05] MEDS: ALLOPURINOL 100 MG TABLET GT SCH (08:21)
[2021-12-05] MEDS: AMLODIPINE BESYLATE 5 MG TABLET GT SCH (08:21)
[2021-12-05] MEDS: ESCITALOPRAM OXALATE (10 MG) 10 MG TABLET GT SCH (08:21)
--- NOTE | 2021-12-05 09:41 | NUR ---
WOUND CARE CONSULT: PT PRESENTS WITH SCARRING TO SACRUM AND TO LEFT FOOT, PRESENT ON ADMISSION. RECOMMENDATIONS MADE FOR SKIN PROTECTION. DISCUSSED WITH NURSING STAFF. FIRST STEP LOW AIRLOSS MATTRESS ORDERED. MD IN AGREEMENT WITH PLAN OF CARE.
--- NOTE | 2021-12-05 14:07 | NUR ---
RN NOTE TALKED TO SISTER YAMINI IRIZARRY ([phone]). SISTER VOICED DESIRE TO BRING PT HOME ONCE CLEARED FOR DISCHARGED WHERE HE WOULD LIVE WITH HER AND THEIR BROTHER. SISTER EDUCATED ON NEED TO COMMUNICATE THIS WITH CASE MANAGEMENT AND MD ONCE CLEARED FOR DISCHARGE REGARDING CARE NEEDED BY PT.
[2021-12-05] MEDS: GLUCERNA 1.2 1,000 ML BOTTLE PEG PRN (16:30)
[2021-12-05 20:00] VITALS: BP 109/70
--- NOTE | 2021-12-05 20:12 | NUR ---
MS/TELE/RN RECEIVED PATIENT IN BED AWAKE, NON VERBAL, APPEARED COMFORTABLE, NO SIGNS OF DISTRESS NOTED, HOB ELEVATED, G TUBE FEEDING INFUSING, NO RESIDUAL NOTED, CALL LIGHT IN REACH, FALL PRECAUTIONS PER PROTOCOL IMPLEMENTED, WILL MONITOR.
[2021-12-05] MEDS: INSULIN GLARGINE, 100 UNIT/ML CARTRIDGE SQ SCH (21:52)
[2021-12-05] MEDS: ATORVASTATIN 40 MG TABLET GT SCH (21:53)
[2021-12-06] VITALS: BP 143/62
[2021-12-06 04:00] VITALS: BP 142/72
--- NOTE | 2021-12-06 06:15 | NUR ---
MS/TELE/RN PATIENT IS AWAKE, APPEARS COMFORTABLE, NO SIGNS OF DISTRESS NOTED, ALL NEEDS ATTENDED AT THIS TIME, WILL CONTINUE TO MONITOR.
[2021-12-06 06:22] LABS: BASOPHILS # (AUTO) 0.1 K/uL (0.0-0.2); BASOPHILS % (AUTO) 0.7 % (0.0-2.0); EOSINOPHILS % (AUTO) 6.2 % (0.0-6.0); HEMATOCRIT 38 % (39-51); HEMOGLOBIN 12.6 g/dL (13.5-17.5); LYMPHOCYTES # (AUTO) 1.4 K/uL (0.8-4.8); LYMPHOCYTES % (AUTO) 14.1 % (20.0-44.0); MEAN CORPUSCULAR HGB CONC 33 g/dl (31.0-36.0); MEAN CORPUSCULAR VOLUME 88 fL (80-96); MONOCYTES # (AUTO) 0.7 K/uL (0.1-1.30); MONOCYTES % (AUTO) 6.9 % (2.0-12.0); NEUTROPHILS # (AUTO) 7.1 K/uL (1.8-8.9); NEUTROPHILS % (AUTO) 72.1 % (43.0-81.0); PLATELET COUNT (AUTO) 208 K/uL (150-450); RED BLOOD CELL COUNT(AUTO) 4.27 MIL/uL (4.5-6.0); WHITE BLOOD COUNT (AUTO) 9.8 K/uL (4.3-11.0)
--- NOTE | 2021-12-06 07:00 | NUR ---
SOUND ASSISTANT OPENING NOTES PATIENT LAYING IN BED, A/O X 1, NONVERBAL. TOLERATING WELL ON ROOM AIR WITH NO S/S RESPIRATORY DISTRESS. NO COMPLAINTS OF PAIN OR DISCOMFORT AT THIS TIME. L HAND # 18 G SL CLEAN, INTACT, AND FLUSHING WELL. TELE MONITOR IN PLACE READING SR 80 WITH BBB. G-TUBE IN PLACE WITH GLUCERNA 1.2 AME INFUSING @ 65 ML/HR. SAFETY MEASURES IN PLACE: BED IN LOWEST LOCKED POSITION, SIDE RAILS UP X 2, CALL LIGHT WITHIN REACH. WILL CONTINUE TO MONITOR.
[2021-12-06 08:00] VITALS: BP 134/79
[2021-12-06 08:32] LABS: CALCIUM, SERUM 8.8 mg/dL (8.5-10.1); POTASSIUM 3.4 mmol/L (3.5-5.1)
[2021-12-06] MEDS: ESCITALOPRAM OXALATE (10 MG) 10 MG TABLET GT SCH (08:47)
[2021-12-06] MEDS: LEVOTHYROXINE SODIUM 25 MCG TABLET GT SCH (08:47)
[2021-12-06] MEDS: ASPIRIN 81 MG TAB.CHEW GT SCH (08:47)
[2021-12-06] MEDS: AMLODIPINE BESYLATE 5 MG TABLET GT SCH (08:47)
[2021-12-06] MEDS: CHOLECALCIFEROL 1,000 UNIT TABLET (VIT D3) GT SCH (08:47)
[2021-12-06] MEDS: DOCUSATE SODIUM LIQ 100 MG/10 ML UDC GT SCH (08:47)
[2021-12-06] MEDS: CLOPIDOGREL BISULFATE 75 MG TABLET GT SCH (08:48)
[2021-12-06] MEDS: ALLOPURINOL 100 MG TABLET GT SCH (08:48)
[2021-12-06] MEDS: FERROUS SULFATE UDC 300 MG/5 ML UDC GT SCH ×2 (08:48→16:40)
[2021-12-06] MEDS ORDERED: POTASSIUM CHLORIDE 20 MEQ TAB.PRT.SR PO SCH (10:00)
--- NOTE | 2021-12-06 12:05 | NUR ---
Family Intervention: WEI and Kyung KIRKPATRICK met with the patient's brother, Olimpia today as family stated they wanted to take the patient home and they did not want the pt. to return to the facility: [facility]. Kyung KIRKPATRICK explained the preparation needed to safely take patient home. WEI and KAYA explained to family that they can work with SNF to receive appropriate training to care for pt. at home and that they need appropriate DME at home to take pt. KAYA also explained to family that they may be able to change insurance plan to one that would cover the costs of SNF near family in [place]. Family expressed understanding and are agreeable to plan.
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
--- NOTE | 2021-12-06 19:00 | NUR ---
MS RN CLOSING NOTE PATIENT LAYING IN BED, A/O X 1, NONVERBAL. TOLERATING WELL ON ROOM AIR WITH NO S/S RESPIRATORY DISTRESS. NO COMPLAINTS OF PAIN OR DISCOMFORT AT THIS TIME. IV LINE REMOVED. PICKUP TIME AT 1999, EXIT CARE PROVIDED, REPORT CALLED TO FACILITY, ALL SIGNATURES OBTAINED AND PAPERWORK COMPLETED. G-TUBE IN PLACE WITH GLUCERNA 1.2 AME INFUSING @ 65 ML/HR. SAFETY MEASURES IN PLACE: BED IN LOWEST LOCKED POSITION, SIDE RAILS UP X 2, CALL LIGHT WITHIN REACH. ALL NEEDS MET. WILL ENDORSE TO INVESTIGATION LIEUTENANT FOR NAHUM.
--- NOTE | 2021-12-06 19:45 | NUR ---
MS RN OPENING NOTE PATIENT AWAKE IN BED, PATIENT NON-VERBAL BUT ABLE TO FOLLOW DIRECTIONS. PATIENT STABLE ON RA, NO S/S OF DISTRESS OR SOB NOTED, BREATHING EVEN AND UNLABORED. PATIENT HAS G-TUBE RUNNING GLUCERNA @ 65 ML/HR. NO IV PRESENT AT THIS TIME, REMOVED BY DAY SHIFT. PATIENT TO BE DISCHARGE BACK TO [facility], [facility]ER [facility]ANO ACTION SCHEDULED FOR 8 PM. SAFETY MEASURES IN PLACE: CALL LIGHT WITHIN REACH, SIDE RAILS UP X 2, BED LOCKED IN LOWEST POSITION, BED ALARM ON. WILL CONTINUE TO MONITOR PATIENT
[2021-12-06 20:21] VITALS: BP_SYST 119; BP_SYST 152; BP_DIAS 67; BP_DIAS 81
--- NOTE | 2021-12-06 21:05 | NUR ---
MS RN NOTE [facility] HERE TO BEAD FORMING MACHINE SET UP OPERATOR PATIENT, HOWEVER, PATIENT'S BP ELEVATED, 178/85. CALLED [facility] AND SPOKE TO ELEMENTARY SUPERVISOR TO SEE IF PATIENT CAN STILL BE ACCEPTED. PER ELEMENTARY SUPERVISOR CATA, CAN'T ACCEPT PATIENT WITH SBP > 150. WILL GIVE CLONIDINE VIA GT AND REASSESS. PER [facility] CALL BACK TO RESCHEDULE BEAD FORMING MACHINE SET UP OPERATOR
[2021-12-06 21:45] VITALS: BP 113/64
--- NOTE | 2021-12-06 21:50 | NUR ---
MS RN NOTE CALLED [facility] ([phone]). PER BUSINESS CONTINUITY CONSULTANT EARLIEST CERTIFIED PERSONAL CHEF TIME IS MIDNIGHT. CONFIRMED CERTIFIED PERSONAL CHEF AT MIDNIGHT. WILL CALL [facility] TO CONFIRM THEY WILL ACCEPT PATIENT AT THAT TIME
--- NOTE | 2021-12-06 21:56 | NUR ---
MS RN NOTE SPOKE TO PRIMARY CARE COORDINATOR AT [facility] TO CONFIRM IF THEY WILL ACCEPT THE PATIENT PAST MIDNIGHT, THE EARLIEST GRADES 6 THROUGH 8 TEACHER TIME IS MIDNIGHT WITH [facility]. PER PRIMARY CARE COORDINATOR THEY WILL ACCEPT PATIENT
[2021-12-06] MEDS: ATORVASTATIN 40 MG TABLET GT SCH (22:15)
[2021-12-06] MEDS: INSULIN GLARGINE, 100 UNIT/ML CARTRIDGE SQ SCH (22:20)
--- NOTE | 2021-12-07 00:20 | NUR ---
MS LIST OF FIRST JOB IDEAS NOTE PATIENT PICKED UP BY 2 EMT'S WITH [facility]. VITAL SIGNS WNL. PATIENT STABLE ON RA, NO S/S OF DISTRESS OR SOB NOTED, BREATHING EVEN AND UNLABORED. MEDICATIONS GIVEN ORDERED, PT NEEDS MET THROUGHOUT SHIFT. DISCHARGE PACKET GIVEN TO EMT. NO IV ACCESS. GT TUBE INTACT, DRESSING CLEAN AND DRY.
== END 2021-12-07 00:20 | DRG 368 ==
LOC: ER 09:50 → TELE 20:07 → MED 12-06 09:58
PROVIDERS: ADMIT Family Medicine; ATTEND Family Medicine
DX: K20.91 Esophagitis, unspecified with bleeding (principal); E43 Unspecified severe protein-calorie malnutrition; N17.0 Acute kidney failure with tubular necrosis; I69.354 Hemiplegia and hemiparesis following cerebral infarction affecting left non-dominant side; K86.1 Other chronic pancreatitis; E11.65 Type 2 diabetes mellitus with hyperglycemia; Z20.822 Contact with and (suspected) exposure to COVID-19; E78.5 Hyperlipidemia, unspecified; E03.9 Hypothyroidism, unspecified; D72.829 Elevated white blood cell count, unspecified; R13.10 Dysphagia, unspecified; Z93.1 Gastrostomy status; F32.A Depression, unspecified; I10 Essential (primary) hypertension; E88.09 Other disorders of plasma-protein metabolism, not elsewhere classified; Z79.02 Long term (current) use of antithrombotics/antiplatelets; Z79.82 Long term (current) use of aspirin; Z79.4 Long term (current) use of insulin; Z79.899 Other long term (current) drug therapy; Z79.51 Long term (current) use of inhaled steroids; Z98.890 Other specified postprocedural states; Z90.49 Acquired absence of other specified parts of digestive tract; N28.1 Cyst of kidney, acquired; R74.01 Elevation of levels of liver transaminase levels; K56.41 Fecal impaction; K52.89 Other specified noninfective gastroenteritis and colitis
CPT/HCPCS: 36415; 71045-TC; 80048-TC; 80076-TC; 82962-TC; 83690-TC; 83735-TC; 84100-TC; 85025-TC; 85730-TC; 87081-TC; C9113; C9803; G0378; J1815; J2405; J7030; J7050; Q9967